=== PATIENT | male | born 1950 | race Caucasian/White ===

== ENCOUNTER 2022-06-03 19:02 | Inpatient (IN) | payer MEDICARE, OTHER ==
[~2022-06-03] VITALS: Ht 188 cm; Wt 92.1 kg
--- NOTE | 2022-06-03 01:50 | NUR ---
PATIENT ARRIVED FROM ER, AWAKE, A.OX 4. NO S/S OF DISTRESS NOTED.WALKED TO THE BATHROOM WITH STANDBY ASSIST. NO COMPLAIN OF PAIN. CALL LIGHT WITHIN REACH. BED ALARM ON. BED IN LOWEST AND LOCKED POSITION. PATIENT REFUSED TO HAVE THE ORTHOSTATIC BP TO BE TAKEN AT THIS TIME, PATIENT STATES HE WANTS TO REST FOR NOW, WILL ENDORSE TO THE NEXT SHIFT RN.
--- NOTE | 2022-06-03 19:30 | NUR ---
PT BIBRA C/O POSSIBLE SYNCOPE. PT FOUND IN BACK[place] UNABLE TO STAND. EMS GIVEN 2MG NARCAN ON SCENE. PT AAOX2, BUT DOES NOT REMEMEBER EVENTS PRECEDING COMING TO THE ER. RONAL TYSON. PT SKIN WARM TO THE TOUCH. PT ATTACHED TO MONITOR AND POX. PT GIVEN BLANKET AND CHANGED INTO GOWN.WILL CONTINUE TO MONITOR.
--- NOTE | 2022-06-03 19:58 | NUR ---
PATIENT GOING TO CT
[2022-06-03] MEDS ORDERED: IV NS 0.9% 1,000 ML BAG IV ONE (20:00)
--- NOTE | 2022-06-03 20:15 | NUR ---
PT NOTED SATURATING BETWEEN 92-93% PLACED ON 2L O2 VIA NC. PT SATURATION 97%
--- NOTE | 2022-06-03 20:20 | NUR ---
ROBY [phone]
--- NOTE | 2022-06-03 20:24 | NUR ---
BLOOD DRAWN AND SENT TO LAB
[2022-06-03 20:43] LABS: CARBON DIOXIDE 33 mmol/L (21-32); CHLORIDE 93 mmol/L (98-107); CREATININE 1.3 mg/dL (0.6-1.3); GLUCOSE 103 mg/dL (74-106); SODIUM SERUM 133 mmol/L (136-145); UREA NITROGEN, BLOOD 39 mg/dL (7-18)
[2022-06-03 20:45] LABS: POTASSIUM 2.7 mmol/L (3.5-5.1); SERUM AMMONIA 5 umol/L (11-32)
[2022-06-03 20:52] LABS: ALANINE AMINOTRANSFERASE 39 U/L (12-78); ALBUMIN 3.4 g/dL (3.4-5.0); ALKALINE PHOSPHATASE 102 U/L (46-116); ASPARTATE AMINOTRANSFERASE 35 U/L (15-37); BILIRUBIN,DIRECT 0.7 mg/dL (0.0-0.2); TOTAL PROTEIN, SERUM 8.5 g/dL (6.4-8.2)
[2022-06-03 20:53] LABS: ALCOHOL, BLOOD < 3 mg/dL (0-0)
[2022-06-03] MEDS ORDERED: POTASSIUM CL. PREMIX PERIPHER. 50 ML ONE (21:03)
[2022-06-03] MEDS ORDERED: POTASSIUM CHLORIDE ONE (21:05)
[2022-06-03 21:09] LABS: BASOPHILS % (AUTO) 0.2 % (0.0-2.0); EOSINOPHILS % (AUTO) 0.1 % (0.0-6.0); HEMATOCRIT 48 % (39-51); HEMOGLOBIN 16.2 g/dL (13.5-17.5); LYMPHOCYTES # (AUTO) 0.6 K/uL (0.8-4.8); LYMPHOCYTES % (AUTO) 3.2 % (20.0-44.0); MEAN CORPUSCULAR HGB CONC 34 g/dl (31.0-36.0); MEAN CORPUSCULAR VOLUME 101 fL (80-96); MONOCYTES # (AUTO) 1.2 K/uL (0.1-1.30); MONOCYTES % (AUTO) 6.6 % (2.0-12.0); NEUTROPHILS # (AUTO) 16.2 K/uL (1.8-8.9); NEUTROPHILS % (AUTO) 89.9 % (43.0-81.0); PLATELET COUNT (AUTO) 298 K/uL (150-450); RED BLOOD CELL COUNT(AUTO) 4.71 MIL/uL (4.5-6.0)
[2022-06-03] MEDS: POTASSIUM CL. PREMIX PERIPHER. 50 ML IV SCH ×2 (21:15→23:00)
[2022-06-03] MEDS ORDERED: LIDOCAINE 2% JEL UROJET 10 ML MM ONE (21:54)
--- NOTE | 2022-06-03 22:03 | NUR ---
URINE SENT TO LAB
[2022-06-03 22:46] LABS: BILIRUBIN,URINE NEGATIVE (NEGATIVE); COLOR,URINE YELLOW (YELLOW); LEUKOCYTE ESTERASE ,URINE NEGATIVE (NEGATIVE); NITRITE, URINE NEGATIVE (NEGATIVE); PROTEIN,URINE NEGATIVE (NEGATIVE); UGLUCOSE NEGATIVE (NEGATIVE)
--- NOTE | 2022-06-03 23:40 | NUR ---
PT RESTING QUIETLY, ATTACHED TO MONITOR AND POX. VSS
[2022-06-04] VITALS (8 sets, daily range): BP systolic 99–139; BP diastolic 61–83
[2022-06-04] MEDS ORDERED: Z GUARD REMEDY 4 OZ OINT TP PRN
[2022-06-04] MEDS ORDERED: MAG HYDROX/AL HYDROX/SIMETH 30 ML UDC PO PRN
[2022-06-04] MEDS ORDERED: MAGNESIUM HYDROXIDE 30 ML UDC PO PRN
[2022-06-04] MEDS ORDERED: ACETAMINOPHEN 325 MG TABLET PO PRN
[2022-06-04] MEDS ORDERED: ONDANSETRON HCL/PF 4 MG/2 ML VIAL IVP PRN
[2022-06-04] MEDS ORDERED: ZOLPIDEM TARTRATE 5 MG TABLET PO PRN
--- NOTE | 2022-06-04 | NUR ---
3RD BAG OUT OF 8 HUNG UP. RT FOREARM 20G ENDTIME 0100
--- NOTE | 2022-06-04 00:58 | NUR ---
ATTEMPTED TO GIVE REPORT. RN WITH PT.
[2022-06-04] MEDS: POTASSIUM CL. PREMIX PERIPHER. 50 ML IV SCH ×5 (01:00→05:36)
--- NOTE | 2022-06-04 01:00 | NUR ---
4TH BAG OUT OF 8 BAGS HUNG UP. RT FOREARM 20G ENDTIME 0200
[2022-06-04] MEDS ORDERED: ATEN1TAB3 PO (01:27)
[2022-06-04] MEDS ORDERED: BUPR1FIL3 SL (01:27)
[2022-06-04] MEDS ORDERED: TAMS-12 PO (01:27)
--- NOTE | 2022-06-04 01:27 | NUR ---
PATIENT DOES NOT RECALL A COMPLETED LIST OF HIS HOME MEDS. MED RECON DONE BASED ON WHAT HE REMEMBERS AND EXTERNAL PHARMACY MED LIST.
--- NOTE | 2022-06-04 01:38 | NUR ---
REPORT GIVEN TO FRANCISCA ON THIRD FLOOR
--- NOTE | 2022-06-04 02:00 | NUR ---
patient was transferred to [facility] under ACLS and rec'd by Billy.
[2022-06-04] MEDS: ENOXAPARIN SODIUM 40 MG/0.4 ML DISP.SYRIN SQ SCH ×3 (03:01→21:05)
[2022-06-04 06:52] LABS: BASOPHILS % (AUTO) 0.2 % (0.0-2.0); EOSINOPHILS % (AUTO) 0.6 % (0.0-6.0); HEMATOCRIT 44 % (39-51); LYMPHOCYTES # (AUTO) 1.1 K/uL (0.8-4.8); LYMPHOCYTES % (AUTO) 5.6 % (20.0-44.0); MEAN CORPUSCULAR HGB CONC 34 g/dl (31.0-36.0); MEAN CORPUSCULAR VOLUME 103 fL (80-96); MONOCYTES # (AUTO) 2.2 K/uL (0.1-1.30); MONOCYTES % (AUTO) 11.6 % (2.0-12.0); NEUTROPHILS # (AUTO) 15.8 K/uL (1.8-8.9); PLATELET COUNT (AUTO) 230 K/uL (150-450); RED BLOOD CELL COUNT(AUTO) 4.29 MIL/uL (4.5-6.0); WHITE BLOOD COUNT (AUTO) 19.2 K/uL (4.3-11.0)
--- NOTE | 2022-06-04 07:30 | NUR ---
RN OPENING NOTE PATIENT IS IN BED, AWAKE, ALERT, ORIENTED X 4. ON ROOM AIR, BREATHING UNLABORED, AND NOT IN ANY FORM OF DISTRESS. WITH RIGHT WRIST SALINE LOCK INTACT AND PATENT. WITH RIGHT FOREARM GAUGE 20 INFUSING WITH NS AT 75 ML/HR. SINUS RHYTHM ON MEDIA OPERATOR. BED IS LOCKED IN LOWEST POSITION, 3 SIDE RAILS UP, CALL LIGHT WITHIN REACH. WILL CONTINUE TO MONITOR THROUGHOUT SHIFT.
[2022-06-04 07:38] LABS: CREATININE 1.1 mg/dL (0.6-1.3); MAGNESIUM 2.4 mg/dL (1.8-2.4); PHOSPHORUS 2.5 mg/dL (2.5-4.9); POTASSIUM 3.1 mmol/L (3.5-5.1)
[2022-06-04] MEDS: PANTOPRAZOLE 40 MG TABLET.DR PO SCH (09:13)
[2022-06-04 09:21] LABS: THYROID STIMULATING HORMONE 1.928 uIU/mL (0.358-3.74)
[2022-06-04] MEDS ORDERED: POTASSIUM CHLORIDE 20 MEQ TAB.PRT.SR PO SCH (10:00)
[2022-06-04] MEDS: ASPIRIN EC 81 MG TABLET.DR PO SCH (10:19)
[2022-06-04] MEDS: CEFEPIME 2 GM in IV D5W 100 ML IV SCH ×2 (10:19→18:08)
[2022-06-04] MEDS: VANCOMYCIN 1.25 GM in IV D5W 250 ML IV SCH ×2 (11:16→22:20)
--- NOTE | 2022-06-04 11:23 | NUR ---
RN NOTE ORTHASTIC BLOOD PRESSURE TAKEN: BLOOD PRESSURE WHILE SUPINE IS 109/66; SITTING BP AT 99/65. DR. NUNEZ MADE AWARE.
--- NOTE | 2022-06-04 13:56 | NUR ---
SS consult: SS Consult requested for positive tox screen for Meth. The pt. is a 60-year-old male patient who came in for a syncopal episode. Upon SS consult, the pt. is Alert & Oriented x 3 and makes good eye contact. The pt. appears well-groomed with euthymic mood and affect. Pt. denies SI/HI and denies hallucinations. Per pt. he fainted while at his home. MANDY explored pt.s living situation. Patient states he resides at home [[id number] [address] [facility] [address] [facility] [address]; [phone]]. SW explored pt.s drug & ETOH use. Pt. denies any drug or alcohol harvinder. 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 Pt. stated that he does take some pills that feel like a cup of coffee in the morning. MANDY explored pt.s mental health Hx. Pt. denies any history of mental illness. Per pt. he is ambulatory and independent with all his ADLs. MANDY explored pt.s support system. Pt. states he his partner, Almita Ruelas [phone] is his support system. Pt. reports he receives SSI. Plan: Per pt. he would like to return to his home [[address] [address] [facility] [address]; [phone]]. when ready for discharge. MANDY provided pt. with addiction resources, and he accepted them ADDICTION RESOURCES For Drugs and Alcohol [facility] sober living Referrals For Rehabilitation once sober Address:[address] [place] [address] [facility] [address] [place] [address] Detox/residential [facility] Substance Abuse Helpline ([facility]) Outpatient, residential treatment, recovery support for youth/adults [facility] www.actionfamilycounseling.ArchiveSocial [facility] Teen programs for drug/alcohol education and support Leatha Valentin [place]. Program for adults, sliding scale provides support and education Kae BlueRonin www.SMARTECH MFGSuperbly.org [place]; Detox/residential treatment programs; transition to sober living [facility] www.cri-help.org [place]; Outpatient and residential treatment programs; transition to sober living [facility] TEL: [phone] [facility] Kuldeep Lau; Outpatient education and supportive programs for teens and adults [facility] www.oasiswomensrecovery.org [facility]; Residential treatment and work program for females only Wilmore [place] www.[facility].VouchAR [place] [facility]: Outpatient/residential treatment program for teens and young adults [facility] www.[facility].org Tarza Detox, inpatient, outpatient for adults and youth [facility], [facility]. [place]; Outpatient programs and referrals to community residential programs. Alcoholics Anonymous -SFV information and meeting and scheduleswww.aa-intergroup.org Zn-Irvf-Enlygzp https://al-anon.org/ [place] support groups for family of alcoholics. Marijuana Anonymous www.madistrict6.org -SFV listing of meetings Narcotics Anonymous www.na.org SOBER LIVING RESOURCES [facility] www.soberhousing.net A non-profit agency that provides resources to recovery and sober living homes throughout [facility] Sober Living Homes: A Work in Progress, [facility], [facility], [facility] Sober Living Homes: [facility] x [phone] [place], [place] [facility] [employer] [facility] [place], [facility] Sober Living Homes: [facility] [address] [place] [place] [address] (Specializes in in-depth psychotherapy for emotional distress: anxiety, depression, interpersonal conflicts, life transitions, childhood abuse) [facility] [address] [place] [address] (Assist with solving problem marital difficulties, separation & divorce, aging parents, & grief, chronic & terminal illness) [facility] [address] [place] [address] (Deal with loss & grief, anxiety, marital difficulties) Homebound/Mental Health Services [address] [facility] [address] [place] [address] (Provide in-home mental services to people who are incapable of leaving their homes) [facility] Needs of the Elderly [facility] Service[facility]Resource Center [address] [place] [address] [facility] [address] [place] [address] Mental Health Services [facility] [address] [place] [address] Services: Outpatient therapy for children, teens, young adults, adults, older adults, and families; Psychiatric services, medication support Psychiatric Outpatient Services [facility] Partial Hospitalization and Intensive Outpatient Program (Managed Care and [place] Only)[address] [facility]. [facility] [phone] [facility] Partial Hospitalization and Outpatient [id number] [facility] [address] [place], [place] [phone] [facility] Mental Health Center Pmg[address] [facility] [address] [place], [place] [phone] [facility] Partial Hospitalization and Outpatient Kemnpbz[address] [place], [phone] Crisis and Hotline Telephone Numbers 24-Hour service unless stated [place] Crisis Hotlines: [facility] Mental Health/Crisis Line........[phone] Suicide Prevention Center (24 Hours).......[phone] Suicide Prevention Crisis Center.......[phone] (24 Hours) Assaults Against Women Hotline.........923.362.2764 (24 Hours -- [facility]) Women and Children Crisis Prison...........[phone] (24 Hours) Child Abuse Hotline............508.456.5267 [facility] (24 Hours)..........[phone] Alcoholics Anonymous (24 Hours)..........[phone] Cocaine Anonymous (24 Hours)............[phone] Narcotics Anonymous (24 Hours)..........[phone] [address] [facility] [address], [place] [address]
[2022-06-04] MEDS: IV NS 0.9% 1,000 ML IV PRN (14:50)
--- NOTE | 2022-06-04 18:52 | NUR ---
RN CLOSING NOTE PATIENT IS RESTING COMFORTABLY IN BED AND REMAINED STABLE THROUGHOUT SHIFT. ON ROOM AIR SATTING AT 98%. RIGHT WRIST SALINE LOCK INTACT AND PATENT. RIGHT FOREARM GAUGE 20 IV LINE INFUSING WITH NS AT 75 ML/HR. BOTH IV SITES SHOW NO SIGNS OF INFILTRATION OR PHLEBITIS. DENIES PAIN, BREATHING UNLABORED, AND NOT IN ANY FORM OF DISTRESS. BED IS LOCKED IN LOWEST POSITION, 3 SIDE RAILS UP, CALL LIGHT WITHIN REACH. WILL ENDORSE TO CLINICAL WRITER NURSE.
--- NOTE | 2022-06-04 19:30 | NUR ---
RN OPENING NOTE PATIENT IS RESTING COMFORTABLY IN BED AND REMAINED STABLE. ON ROOM AIR AT 98%. RIGHT WRIST SALINE LOCK INTACT AND PATENT. RIGHT FOREARM GAUGE 20 IV LINE INFUSING WITH NS AT 75 ML/HR. BOTH IV SITES SHOW NO SIGNS OF INFILTRATION OR PHLEBITIS. DENIES PAIN, BREATHING UNLABORED, AND NOT IN ANY FORM OF DISTRESS. BED IS LOCKED IN LOWEST POSITION, 3 SIDE RAILS UP, CALL LIGHT LIGHT WITHIN REACH.
[2022-06-04] MEDS ORDERED: ALPRAZOLAM 0.25 MG TABLET PO PRN (21:00)
--- NOTE | 2022-06-04 21:00 | NUR ---
PARTY PLAN SALESPERSON NOTES PT COMPLAINING OF HICCUPS AND VERY ANXIOUS REPORTED TO CUSTOMER LIAISON APPRENTICE STYLIST LUCIANA. RECEIVED NEW ORDER FOR XANAX 0.5 MG Q8H PRN FOR ANXIETY. WILL ADMINISTER MEDICATION WHEN AVAILABLE.
[2022-06-04] MEDS: TAMSULOSIN 0.4 MG CAP.SR.24H PO SCH (21:03)
[2022-06-05] VITALS: BP 128/68
[2022-06-05] MEDS: CEFEPIME 2 GM in IV D5W 100 ML IV SCH ×3 (01:10→17:31)
[2022-06-05] MEDS: HYDROCODONE/APAP 5/325MG TABLET PO PRN ×2 (02:24→09:32)
--- NOTE | 2022-06-05 02:26 | NUR ---
manager telemarketing notes prn norco given for pain tolerated well. will continue to monitor.
[2022-06-05 04:00] VITALS: BP 138/75
--- NOTE | 2022-06-05 06:36 | NUR ---
RN CLOSING NOTE PATIENT IS RESTING COMFORTABLY IN BED AND REMAINED STABLE. ON ROOM AIR AT 98%. RIGHT WRIST SALINE LOCK INTACT AND PATENT. RIGHT FOREARM GAUGE 20 IV LINE INFUSING WITH NS AT 75 ML/HR. BOTH IV SITES SHOW NO SIGNS OF INFILTRATION OR PHLEBITIS. DENIES PAIN, BREATHING UNLABORED, AND NOT IN ANY FORM OF DISTRESS. PRN ANXIETY AND PAIN MEDICATION WAS PROVIDED NEEDED. ALL DUE MEDS GIVEN AND TOLERATED WELL. ALL NURSING NEEDS MET.BED IS LOCKED IN LOWEST POSITION, 3 SIDE RAILS UP, CALL LIGHT LIGHT WITHIN REACH. WILL ENDORSE CARE TO DAY SHIFT NURSE.
[2022-06-05 06:55] LABS: CALCIUM, SERUM 8.5 mg/dL (8.5-10.1); CREATININE 1.1 mg/dL (0.6-1.3); POTASSIUM 3.3 mmol/L (3.5-5.1)
--- NOTE | 2022-06-05 07:30 | NUR ---
TILE BURNER OPENING NOTES RECEIVED PATIENT AWAKE AND A/O X4. ON ROOM AIR TOLERATING WELL NO SOB NOTED . NOT IN DISTRESS . WITH NO COMPLAINTS OF PAIN OR DISCOMFORT AT THIS TIME. ON TELE MONITOR CURRENTLY READING SR @ 77BPM. WITH IV ACCESS RIGHT FOREARM GAUGE # 20 WITH IVF NS @ 75 ML/HR INFUSING WELL. SAFETY MEASURES IN PLACE , CALL LIGHT WITHIN REACH , BED IN LOWEST AND LOCKED POSITION SIDERAILS UP X 2. WILL CONTINUE TO MONITOR.
[2022-06-05 08:00] VITALS: BP 119/68
[2022-06-05] MEDS: PANTOPRAZOLE 40 MG TABLET.DR PO SCH (09:32)
[2022-06-05] MEDS: HYDROCHLOROTHIAZIDE 25 MG TABLET PO SCH (09:32)
[2022-06-05] MEDS: ATENOLOL 50 MG TABLET PO SCH (09:33)
[2022-06-05] MEDS: ASPIRIN EC 81 MG TABLET.DR PO SCH (09:33)
[2022-06-05] MEDS ORDERED: POTASSIUM CHLORIDE 20 MEQ TAB.PRT.SR PO SCH (10:00)
[2022-06-05 10:08] LABS: BASOPHILS # (AUTO) 0.2 K/uL (0.0-0.2); BASOPHILS % (AUTO) 0.9 % (0.0-2.0); EOSINOPHILS % (AUTO) 1.4 % (0.0-6.0); HEMATOCRIT 48 % (39-51); HEMOGLOBIN 16.3 g/dL (13.5-17.5); LYMPHOCYTES # (AUTO) 0.9 K/uL (0.8-4.8); LYMPHOCYTES % (AUTO) 5.2 % (20.0-44.0); MEAN CORPUSCULAR HGB CONC 34 g/dl (31.0-36.0); MEAN CORPUSCULAR VOLUME 102 fL (80-96); MONOCYTES # (AUTO) 1.3 K/uL (0.1-1.30); NEUTROPHILS # (AUTO) 15.4 K/uL (1.8-8.9); NEUTROPHILS % (AUTO) 85.5 % (43.0-81.0); PLATELET COUNT (AUTO) 297 K/uL (150-450); RED BLOOD CELL COUNT(AUTO) 4.76 MIL/uL (4.5-6.0); WHITE BLOOD COUNT (AUTO) 17.9 K/uL (4.3-11.0)
[2022-06-05 10:19] LABS: ALBUMIN 2.8 g/dL (3.4-5.0); BILIRUBIN,DIRECT 0.7 mg/dL (0.0-0.2); BILIRUBIN,TOTAL 1.6 mg/dL (0.2-1.0); TOTAL PROTEIN, SERUM 7.8 g/dL (6.4-8.2)
[2022-06-05] MEDS: VANCOMYCIN 1.25 GM in IV D5W 250 ML IV SCH ×2 (11:01→22:53)
[2022-06-05 11:36] LABS: BASOPHILS % (MANUAL) 0 % (0.0-2.0); EOSINOPHILS % (MANUAL) 2 % (0-4); LYMPHOCYTES % (MANUAL) 7 % (16-48); MONOCYTES % (MANUAL) 11 % (0-11.0); NEUTROPHILS % (MANUAL) 80 (42-76)
[2022-06-05] MEDS ORDERED: BACLOFEN (10 MG) 10 MG TABLET PO ONE (13:00)
[2022-06-05 16:00] VITALS: BP 120/83
--- NOTE | 2022-06-05 18:15 | NUR ---
MS RN CLOSING NOTES PATIENT AWAKE AND A/O X4. ON ROOM AIR TOLERATING WELL NO SOB NOTED . NOT IN DISTRESS . WITH NO COMPLAINTS OF PAIN OR DISCOMFORT AT THIS TIME. WITH IV ACCESS RIGHT FOREARM GAUGE # 20 WITH IVF NS @ 75 ML/HR INFUSING WELL. DUE MEDS GIVEN. SAFETY MEASURES IN PLACED, CALL LIGHT WITHIN REACH , BED IN LOWEST AND LOCKED POSITION SIDE RAILS UP X 2. WILL ENDORSE TO NEXT SHIFT FOR LANIE.
[2022-06-05 20:00] VITALS: BP 108/52
--- NOTE | 2022-06-05 20:09 | NUR ---
EVENT REPRESENTATIVE OPENING NOTES RECEIVED PATIENT IN BED AA/O X4. ON ROOM AIR TOLERATING WELL NO SIGN SOBDISTRESS NOTED . NO COMPLAINTS OF PAIN/DISCOMFORT AT THIS TIME. ON TELE MONITOR CURRENTLY READING SR @ 80BPM. WITH IV ACCESS RIGHT FOREARM GAUGE # 20 WITH IVF NS @ 75 ML/HR INFUSING WELL. SAFETY MEASURES IN PLACE , CALL LIGHT WITHIN REACH , BED IN LOWEST AND LOCKED POSITION SIDERAILS UP X 2. WILL CONTINUE TO MONITOR.
[2022-06-05] MEDS: TAMSULOSIN 0.4 MG CAP.SR.24H PO SCH (21:04)
[2022-06-05] MEDS: ENOXAPARIN SODIUM 40 MG/0.4 ML DISP.SYRIN SQ SCH (21:05)
[2022-06-06] MEDS: CEFEPIME 2 GM in IV D5W 100 ML IV SCH ×2 (01:18→10:38)
[2022-06-06] MEDS: HYDROCODONE/APAP 5/325MG TABLET PO PRN (01:54)
--- NOTE | 2022-06-06 06:21 | NUR ---
RN OPENING NOTES. PATIENT IN BED AA/O X4. ON ROOM AIR TOLERATING WELL NO SIGN SOBDISTRESS NOTED .DUE MEDS GIVEN ORDERED.ALL NEEDS ATTENDED. WITH IV ACCESS RIGHT FOREARM GAUGE # 20 WITH IVF NS @ 75 ML/HR INFUSING WELL. SAFETY MEASURES IN PLACE , CALL LIGHT WITHIN REACH , BED IN LOWEST AND LOCKED POSITION SIDERAILS UP X 2. WILL ENDORSED TO NEXT NURSE.
[2022-06-06 06:34] LABS: BASOPHILS # (AUTO) 0.1 K/uL (0.0-0.2); BASOPHILS % (AUTO) 0.8 % (0.0-2.0); EOSINOPHILS % (AUTO) 1.7 % (0.0-6.0); HEMATOCRIT 43 % (39-51); HEMOGLOBIN 14.6 g/dL (13.5-17.5); LYMPHOCYTES # (AUTO) 0.6 K/uL (0.8-4.8); MEAN CORPUSCULAR HGB CONC 34 g/dl (31.0-36.0); MEAN CORPUSCULAR VOLUME 101 fL (80-96); MONOCYTES # (AUTO) 1.2 K/uL (0.1-1.30); MONOCYTES % (AUTO) 7.7 % (2.0-12.0); NEUTROPHILS # (AUTO) 13.2 K/uL (1.8-8.9); NEUTROPHILS % (AUTO) 85.8 % (43.0-81.0); PLATELET COUNT (AUTO) 264 K/uL (150-450); RED BLOOD CELL COUNT(AUTO) 4.24 MIL/uL (4.5-6.0); WHITE BLOOD COUNT (AUTO) 15.4 K/uL (4.3-11.0)
[2022-06-06] MEDS: IV NS 0.9% 1,000 ML IV PRN (06:55)
[2022-06-06 06:58] LABS: ALBUMIN 2.2 g/dL (3.4-5.0); BILIRUBIN,TOTAL 1.3 mg/dL (0.2-1.0); POTASSIUM 3.3 mmol/L (3.5-5.1); TOTAL PROTEIN, SERUM 6.7 g/dL (6.4-8.2)
--- NOTE | 2022-06-06 07:21 | NUR ---
RN OPENING NOTES. RECEIVED PATIENT AWAKE IN BED A/O X4. ON ROOM AIR TOLERATING WELL. ABLE TO MAKE NEEDS KNOWN. NO SIGN OF DISTRESS NOTED. ABLE TO MAKE NEEDS KNOWN. WITH IV ACCESS RIGHT FOREARM GAUGE # 24 COVERED, DRY, PATENT AND INTACT. SAFETY MEASURES IN PLACE , CALL LIGHT WITHIN REACH , BED IN LOWEST AND LOCKED POSITION SIDERAILS UP X 2. WILL CONTINUE TO MONITOR.
[2022-06-06 08:00] VITALS: BP 113/68
[2022-06-06] MEDS: ATENOLOL 50 MG TABLET PO SCH (08:01)
[2022-06-06] MEDS: ASPIRIN EC 81 MG TABLET.DR PO SCH (08:01)
[2022-06-06 08:02] VITALS: BP 113/68
[2022-06-06] MEDS: PANTOPRAZOLE 40 MG TABLET.DR PO SCH (08:02)
[2022-06-06] MEDS: HYDROCHLOROTHIAZIDE 25 MG TABLET PO SCH (08:02)
[2022-06-06 08:29] LABS: BASOPHILS % (MANUAL) 0 % (0.0-2.0); EOSINOPHILS % (MANUAL) 1 % (0-4); LYMPHOCYTES % (MANUAL) 5 % (16-48); MONOCYTES % (MANUAL) 12 % (0-11.0); NEUTROPHILS % (MANUAL) 82 (42-76)
[2022-06-06] MEDS ORDERED: POTASSIUM CHLORIDE 20 MEQ TAB.PRT.SR PO ONE (08:30)
[2022-06-06] MEDS: VANCOMYCIN 1.25 GM in IV D5W 250 ML IV SCH (11:56)
--- NOTE | 2022-06-06 15:09 | NUR ---
GERMINATION WORKER NOTES PT DISCHARGED HOME IN STABLE CONDITION. A/O X4, SAME ABLE TO MAKE NEEDS KNOWN. V/S TAKEN, STABLE AND RECORDED. ALL BELONGINGS ACCOUNTED FOR AND PT SIGNED BELONGINGS LIST. PHOTOS OF SKIN TAKEN AND FILED ON HIS CHART. IV ACCESS ON RFA REMOVED, NO ACTIVE BLEEDING NOTED, DRY PRESSURE DRESSING APPLIED AT SITE. NAME ID BAND REMOVED. HEALTH TEACHINGS/DISCHARGE INSTRUCTIONS GIVEN TO PT ANF HE VERBALIZED UNDERSTANDING. PT LEFT UNIT @ 1505 VIA WHEELCHAIR ACCOMPANIED BY ARI DILLON AND PT'S FRIEND NAMED ANALISA. AND CHARGE NURSE AWARE OF DC.
== END 2022-06-06 15:10 | disposition home or self-care (01) | DRG 74 ==
LOC: ER 19:15 → TELE 06-04 00:50 → MED 06-05 11:35
PROVIDERS: ADMIT Nurse Practitioner Family; ATTEND Internal Medicine
DX: G90.8 Other disorders of autonomic nervous system (principal); R17 Unspecified jaundice; N39.0 Urinary tract infection, site not specified; E87.1 Hypo-osmolality and hyponatremia; E87.6 Hypokalemia; I10 Essential (primary) hypertension; E88.09 Other disorders of plasma-protein metabolism, not elsewhere classified; S30.0XXA Contusion of lower back and pelvis, initial encounter; X58.XXXA Exposure to other specified factors, initial encounter; Y92.9 Unspecified place or not applicable; E87.70 Fluid overload, unspecified; Z98.1 Arthrodesis status; I65.22 Occlusion and stenosis of left carotid artery; E86.0 Dehydration
CPT/HCPCS: 36415; 70450-TC; 71045-TC; 80048-TC; 80053-TC; 80061-TC; 80076-TC; 80202-TC; 82140-TC; 83735-TC; 84100-TC; 84443-TC; 84484-TC; 85025-TC; 87040-TC; 87081-TC; 93307-TC; 93880-TC; 97116-TC; 97530-TC; C9803; G0378; G0480; J0692; J1650; J3370; J3480; J3490; J7030; J7060